=== PATIENT | male | born 1965 | race Caucasian/White ===

== ENCOUNTER 2017-09-29 00:48 | Day surgery (SDC) | payer BC ==
[2017-09-29] MEDS ORDERED: Midazolam HCl 2 mg/2 ml Vial ONE (02:18)
[2017-09-29] MEDS ORDERED: Fentanyl 100 MCG/2 ML VIAL ONE (02:18)
[2017-09-29] MEDS ORDERED: Glycopyrrolate 0.2 MG/ML 5 ML SYRINGE ONE (02:33)
[2017-09-29] MEDS ORDERED: Propofol 200 MG/20 ML VIAL ONE (02:33)
[2017-09-29] MEDS ORDERED: Succinylcholine Chloride 20 MG/ML 10 ml SYRINGE FS ONE (02:33)
[2017-09-29] MEDS ORDERED: Lidocaine 2% PF 10 ML AMP (For Epidural Use) ONE (02:33)
--- NOTE | 2017-09-29 05:44 | HP ---
DATE OF CONSULTATION: 09/29/2017 REQUESTING PHYSICIAN: Dr. Raymond. REASON FOR CONSULTATION: Esophageal foreign body. HISTORY OF PRESENT ILLNESS: Mr. Lizandro Koehler is a very pleasant 52-year-old man who was transferred here from an outside Emergency Department with esophageal foreign body sensation and constant regurgi tation over the past 6 hours. He states he was eating steak yesterday evening when he suddenly felt a sensation of food lodging in the lower chest, ever since that time, he has been unable to tolerate liquids. He can drink a little bit down, but very soon, he will regurgitate back up all that liquid. He says he has had infrequent episodic dysphagia for the past several years, episodes happening abo ut once per year for several years now, but the sensation has always resolved on its own either throu gh regurgitating the food or just waiting for the sensation to pass, but this is a worse episode and has not resolved itself. At the outside ER, he received glucagon without benefit. He denies any oth er symptoms. There is no cough, no shortness of breath. There is a little bit of abdominal discomfo rt, which he attributes to retching and trying to make himself vomit over the past few hours. Notabl y, he states that as a infant he had what sounds like esophageal atresia and had some sort of surgica l procedure, but denies ever having an EGD as an adult. REVIEW OF SYSTEMS: Full review of systems including constitutional, head, eyes, ears, nose, throat, GI, , cardiovascular, respiratory, musculoskeletal, and neurologic systems is negative except as no sera in the HPI. PAST MEDICAL HISTORY: 1. 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 2. Appendectomy. SOCIAL HISTORY: No smoking, no alcohol use today. FAMILY HISTORY: Negative for GI malignancy or esophageal problems. ALLERGIES: No known drug allergies. OUTPATIENT MEDICATIONS: None. PHYSICAL EXAMINATION: VITAL SIGNS: Temperature 97.7, pulse 61, blood pressure 115/76, 97% oxygen saturation on room air. GENERAL: No acute distress. HEART: Regular rate and rhythm. LUNGS: Clear to auscultation bilaterally. ABDOMEN: Soft, bowel sounds present, nontender to palpation throughout. EXTREMITIES: No peripheral edema. SKIN: No jaundice, no rash visible or palpable. EYES: No scleral icterus. Extraocular movements intact. ENT: Mucous membranes moist, no oral lesions. LYMPH: No submandibular or supraclavicular lymphadenopathy. THYROID: Nontender to palpation. NEUROLOGICAL: Cranial nerves II through XII intact bilaterally. VESSELS: Radial pulses 2+ bilaterally. ASSESSMENT AND PLAN: 1. Esophageal foreign body, food bolus impaction. 2. Reported history of esophageal atresia, status post surgery as an . The patient has not cox d symptoms of esophageal foreign body for the past 6 hours. We will plan for urgent EGD tonight. I discussed the procedure in detail with the patient. I anticipate the patient will be able to be disc harged home following the procedure.
--- NOTE | 2017-09-29 06:18 | OP ---
DATE OF PROCEDURE: 09/29/2017 SURGEON: Danny Howell M.D. PLATE CLEANER SURGEON: None. PROCEDURE: Esophagogastroduodenoscopy with foreign body removal and biopsies. INDICATION: Esophageal foreign body, food bolus impaction. MEDICATIONS: See anesthesia record. FINDINGS: After discussion of the risks, benefits and alternatives of the procedure, informed conse nt was obtained and witnessed. Pre-endoscopic cardiopulmonary examination was satisfactory. Timeou t was performed before sedation was achieved. Sedation was achieved with anesthesia assistance in [facility] endoscopy unit with the patient endotracheally intubated under general anesthesia. The patient w as placed in left lateral decubitus position. A Pentax adult upper endoscope was placed into the or opharynx and passed through the cricopharyngeus under direct visualization. In the distal esophagus , there was a very large food bolus impaction. This did not pass through into the stomach with air insufflation. Using a Montano net we successfully removed 3 very large pieces of steak from the distal esophagus. The food bolus was completely removed in this fashion. The endoscope was passed back d own the esophagus for examination. In the distal esophagus, there is significant esophagitis and ma ceration. No deep ulcerations. There is a ringed appearance and edema of the lower and mid esophag us suggestive of possible eosinophilic esophagitis with a couple of low grade strictures at 33 cm an d at 40 cm from the incisors. Biopsies were obtained from the mid esophagus to evaluate for possibl e eosinophilic esophagitis. No dilations were performed on this procedure. The endoscope was passe d forward into the stomach. Forward and retroflexed views of the entire gastric mucosa were obtaine d. The gastric mucosa appeared normal. The endoscope was passed through the pylorus and into the f irst and second portions of the duodenum which appeared normal. The endoscope was then completely w ithdrawn and the patient allowed to recover. The patient tolerated the procedure well. There were no immediate post-procedure complications. IMPRESSION: 1. Esophageal food bolus impaction in the distal esophagus, removed. 2. Esophagitis, with edema and ringed appearance suggestive of possible eosinophilic esophagitis. Mid esophageal biopsies obtained. 3. 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 4. Normal stomach. 5. Normal duodenum. RECOMMENDATIONS: 1. Chew food thoroughly. 2. Start Protonix 40 mg by mouth daily. 3. Follow up pathology on the esophageal biopsies.
== END 2017-09-29 04:00 | disposition home or self-care (01) ==
LOC: ERS 00:48 → SDC/OP 02:29
PROVIDERS: ATTEND Internal Medicine
PROC: 0DC38ZZ Extirpation of Matter from Lower Esophagus, Via Natural or Artificial Opening Endoscopic (ICD-10-PCS; principal; 2017-09-29)
PROC: 0DB28ZX Excision of Middle Esophagus, Via Natural or Artificial Opening Endoscopic, Diagnostic (ICD-10-PCS; principal; 2017-09-29)
DX: K20.0 Eosinophilic esophagitis (principal); T18.128A Food in esophagus causing other injury, initial encounter; K22.2 Esophageal obstruction; Z90.49 Acquired absence of other specified parts of digestive tract; Z98.890 Other specified postprocedural states
CPT/HCPCS: 88305; 88312; 88313; 99285; J2001; J2250; J2704; J3010